=== PATIENT | male | born 1940 | race Caucasian/White ===

== ENCOUNTER → 2016-08-20 | Outpatient (CLI) | payer SELFPAY ==
[2016-08-20 09:58] LABS: MEAN CORPUSCULAR HEMOGLOBIN 31.3 pg (27.0-33.0); MEAN CORPUSCULAR HGB CONC 33.2 g/dl (32.0-36.5); MEAN CORPUSCULAR VOLUME 94.5 fl (80.0-96.0); RED CELL DISTRIBUTION WIDTH 13.3 % (11.5-14.5); WHITE BLOOD COUNT 9.6 K/mm3 (4.0-10.0)
[2016-08-20 10:11] LABS: ALBUMIN 3.6 GM/DL (3.2-5.2); ALBUMIN/GLOBULIN RATIO 1.06 (1.00-1.93); BILIRUBIN,TOTAL 0.5 MG/DL (0.2-1.0); CALCIUM LEVEL 8.8 MG/DL (8.8-10.2); CREATININE FOR GFR 1.57 MG/DL (0.70-1.30); GLOMERULAR FILTRATION RATE 46.3 (>42); POTASSIUM SERUM 4.9 MEQ/L (3.5-5.1)
== END ==
LOC: M WUC 08:19
PROVIDERS: ATTEND Family Medicine
DX: N18.2 Chronic kidney disease, stage 2 (mild) (principal); E78.2 Mixed hyperlipidemia; Z12.5 Encounter for screening for malignant neoplasm of prostate
CPT/HCPCS: 36415; 80053; 80061; 85027; G0103

== ENCOUNTER 2017-08-21 12:53 | Inpatient (IN) | payer MEDICARE, OTHER, SELFPAY ==
[2017-08-21] MEDS: METOPROLOL 5 MG/5 ML VIAL IV ×3 (13:39→13:49)
[2017-08-21 13:46] LABS: BASO % 0.3 % (0.0-1.0); EOS % 0.2 % (0.0-3.0); HEMATOCRIT 42.8 % (42.0-52.0); HEMOGLOBIN 14.5 g/dl (13.5-17.5); IMMATURE GRANULOCYTE % 0.3 % (0-3.0); LYMPH # 1.6 10^3/uL (1.5-4.5); LYMPH % 15.8 % (24.0-44.0); MEAN CORPUSCULAR HGB CONC 33.9 g/dl (32.0-36.5); MEAN CORPUSCULAR VOLUME 91.6 fl (80.0-96.0); MONO # 0.8 10^3/uL (0.0-0.8); MONO % 8.3 % (0.0-5.0); NEUTROPHILS # 7.5 10^3/uL (1.8-7.7); NEUTROPHILS % 75.1 % (36.0-66.0); PLATELET COUNT, AUTOMATED 220 10^3/uL (150-450); RED BLOOD COUNT 4.67 10^6/uL (4.30-6.10); RED CELL DISTRIBUTION WIDTH 14.9 % (11.5-14.5)
[2017-08-21 13:55] LABS: INR 1.41; PROTHROMBIN TIME 17.6 SECONDS (12.4-14.5)
[2017-08-21 13:56] LABS: PARTIAL THROMBOPLASTIN TIME 31.9 SECONDS (26.8-37.9)
[2017-08-21 14:16] LABS: ALBUMIN 3.6 GM/DL (3.2-5.2); ALKALINE PHOSPHATASE 65 U/L (45-117); ALT/SGPT 33 U/L (12-78); ANION GAP 10 MEQ/L (8-16); AST/SGOT 19 U/L (7-37); BILIRUBIN,DIRECT 0.3 MG/DL (0.0-0.2); BLOOD UREA NITROGEN 23 MG/DL (7-18); CARBON DIOXIDE LEVEL 23 MEQ/L (21-32); CHLORIDE LEVEL 110 MEQ/L (98-107); CPK CREATINE PHOSPHOKINASE 74 U/L (39-308); CREATININE FOR GFR 1.79 MG/DL (0.70-1.30); FREE T4 1.33 NG/DL (0.76-1.46); GLOMERULAR FILTRATION RATE 39.7 (>42); GLUCOSE, FASTING 95 MG/DL (70-100); LIPASE 391 U/L (73-393); POTASSIUM SERUM 3.5 MEQ/L (3.5-5.1); SODIUM LEVEL 143 MEQ/L (136-145); TOTAL PROTEIN 6.6 GM/DL (6.4-8.2); TROPONIN I 0.05 NG/ML (< 0.10)
[2017-08-21 14:21] LABS: CK-MB VALUE MASS 1.8 NG/ML (<3.6); MB/CK RELATIVE INDEX 2.43 (< OR =4); NT-PRO BNP 7914 PG/ML (<125)
[2017-08-21] MEDS: METOPROLOL TART 50 MG TAB PO (14:28)
[2017-08-21] MEDS ORDERED: METOPROLOL 5 MG/5 ML VIAL IV (15:15)
[2017-08-21] MEDS ORDERED: diltiaZEM 125 MG in NS 100 ML IV (17:30)
[2017-08-21] MEDS: FUROSEMIDE 100 MG/10 ML VIAL (J1940) IV (17:47)
[2017-08-21] MEDS ORDERED: FUROSEMIDE 40 MG/4 ML VIAL (J1940) IV (18:00)
[2017-08-21] MEDS ORDERED: PILL CRUSHER/CUTTER 1 EACH XX (18:00)
[2017-08-21] MEDS ORDERED: METOPROLOL TART 25 MG TABLET PO (18:00)
[2017-08-21 18:31] LABS: CK-MB VALUE MASS 1.9 NG/ML (<3.6); CPK CREATINE PHOSPHOKINASE 83 U/L (39-308); MB/CK RELATIVE INDEX 2.28 (< OR =4); TROPONIN I 0.06 NG/ML (< 0.10)
[2017-08-21] MEDS: APIXABAN 5 MG TAB (ELIQUIS) PO (21:15)
[2017-08-21] MEDS: SIMVASTATIN 40 MG TAB PO (21:15)
[2017-08-21] MEDS: METOPROLOL TART 25 MG TABLET PO (21:15)
[2017-08-22 00:45] LABS: KETONE, URINE AUTO RFX NEGATIVE (NEGATIVE); LEUKOCYTE ESTERASE UR AUTO RFX NEGATIVE (NEGATIVE); NITRITE, URINE AUTO RFX NEGATIVE (NEGATIVE); RBC, URINE AUTO RFX 3 /HPF (0-3); SPECIFIC GRAVITY UR AUTO RFX 1.004 (1.002-1.035); SQUAM EPITHELIAL CELL UR AURFX 0 /HPF (0-6); WBC, URINE AUTO RFX 0 /HPF (0-3)
[2017-08-22 01:08] LABS: CPK CREATINE PHOSPHOKINASE 100 U/L (39-308); TROPONIN I 0.05 NG/ML (< 0.10)
[2017-08-22] MEDS: METOPROLOL 5 MG/5 ML VIAL IV (01:51)
[2017-08-22] MEDS: METOPROLOL TART 25 MG TABLET PO (03:12)
[2017-08-22 05:20] LABS: HEMATOCRIT 41.6 % (42.0-52.0); HEMOGLOBIN 13.7 g/dl (13.5-17.5); MEAN CORPUSCULAR HEMOGLOBIN 30.5 pg (27.0-33.0); MEAN CORPUSCULAR HGB CONC 32.9 g/dl (32.0-36.5); MEAN CORPUSCULAR VOLUME 92.7 fl (80.0-96.0); PLATELET COUNT, AUTOMATED 195 10^3/uL (150-450); RED BLOOD COUNT 4.49 10^6/uL (4.30-6.10); RED CELL DISTRIBUTION WIDTH 14.7 % (11.5-14.5)
[2017-08-22 05:36] LABS: ESTIMATED AVERAGE GLUCOSE 123 MG/DL (60-110); HEMOGLOBIN A1c 5.9 %
[2017-08-22 05:43] LABS: ALBUMIN 3.2 GM/DL (3.2-5.2); ALBUMIN/GLOBULIN RATIO 1.07 (1.00-1.93); ALKALINE PHOSPHATASE 64 U/L (45-117); ALT/SGPT 30 U/L (12-78); ANION GAP 10 MEQ/L (8-16); AST/SGOT 15 U/L (7-37); BILIRUBIN,TOTAL 0.7 MG/DL (0.2-1.0); BLOOD UREA NITROGEN 23 MG/DL (7-18); CALCIUM LEVEL 8.7 MG/DL (8.8-10.2); CARBON DIOXIDE LEVEL 27 MEQ/L (21-32); CHLORIDE LEVEL 108 MEQ/L (98-107); CHOLESTEROL LEVEL 93 MG/DL (<200); CHOLESTEROL RISK RATIO 2.513 (<5); CPK CREATINE PHOSPHOKINASE 83 U/L (39-308); CREATININE FOR GFR 1.66 MG/DL (0.70-1.30); GLOMERULAR FILTRATION RATE 43.3 (>42); GLUCOSE, FASTING 86 MG/DL (70-100); HDL CHOLESTEROL 37 MG/DL (>40); MAGNESIUM LEVEL 1.9 MG/DL (1.8-2.4); NON-HDL-C 56 MG/DL; POTASSIUM SERUM 3.2 MEQ/L (3.5-5.1); SODIUM LEVEL 145 MEQ/L (136-145); TOTAL PROTEIN 6.2 GM/DL (6.4-8.2); TRIGLYCERIDES LEVEL 80 MG/DL (<150); TROPONIN I 0.05 NG/ML (< 0.10)
[2017-08-22 05:44] LABS: CK-MB VALUE MASS 1.9 NG/ML (<3.6); MB/CK RELATIVE INDEX 2.28 (< OR =4)
[2017-08-22] MEDS: METOPROLOL TARTRATE 100 MG TAB PO ×2 (06:25→20:14)
[2017-08-22] MEDS: POTASSIUM CHLORIDE 10 MEQ SR TABLET PO ×2 (06:25→14:20)
[2017-08-22] MEDS ORDERED: SLF 3 ML SYR IV (07:30)
[2017-08-22] MEDS: APIXABAN 5 MG TAB (ELIQUIS) PO ×2 (08:13→20:11)
[2017-08-22] MEDS: DIGOXIN INJ 0.5 MG/2 ML AMP (J1160) IV ×3 (10:25→18:18)
[2017-08-22] MEDS: FUROSEMIDE 40 MG/4 ML VIAL (J1940) IV ×2 (10:26→16:19)
[2017-08-22] MEDS: SLF 3 ML SYR IV ×2 (11:02→21:43)
[2017-08-22] MEDS: MAG SULF 1GM/100ML (MAG RUN) 1 GM in APPROPRIATE DILUENT 1 EA IV (14:20)
[2017-08-22] MEDS: SIMVASTATIN 40 MG TAB PO (20:11)
[2017-08-23] MEDS: SLF 3 ML SYR IV ×3 (06:00→20:18)
[2017-08-23 07:29] LABS: HEMATOCRIT 48.9 % (42.0-52.0); MEAN CORPUSCULAR HEMOGLOBIN 30.8 pg (27.0-33.0); MEAN CORPUSCULAR HGB CONC 32.9 g/dl (32.0-36.5); MEAN CORPUSCULAR VOLUME 93.5 fl (80.0-96.0); PLATELET COUNT, AUTOMATED 224 10^3/uL (150-450); RED BLOOD COUNT 5.23 10^6/uL (4.30-6.10); RED CELL DISTRIBUTION WIDTH 14.8 % (11.5-14.5)
[2017-08-23 07:35] LABS: HEMOGLOBIN 16.1 g/dl (13.5-17.5)
[2017-08-23 07:47] LABS: ANION GAP 8 MEQ/L (8-16); BLOOD UREA NITROGEN 22 MG/DL (7-18); CARBON DIOXIDE LEVEL 31 MEQ/L (21-32); CHLORIDE LEVEL 105 MEQ/L (98-107); CREATININE FOR GFR 1.74 MG/DL (0.70-1.30); GLUCOSE, FASTING 99 MG/DL (70-100); POTASSIUM SERUM 3.5 MEQ/L (3.5-5.1); SODIUM LEVEL 144 MEQ/L (136-145)
[2017-08-23] MEDS: METOPROLOL TARTRATE 100 MG TAB PO ×2 (08:04→20:14)
[2017-08-23] MEDS: FUROSEMIDE 40 MG/4 ML VIAL (J1940) IV ×2 (08:04→16:18)
[2017-08-23] MEDS: APIXABAN 5 MG TAB (ELIQUIS) PO ×2 (08:05→20:17)
[2017-08-23] MEDS: DIGOXIN 0.125 MG TAB PO (08:05)
[2017-08-23] MEDS: DIGOXIN INJ 0.5 MG/2 ML AMP (J1160) IV (18:47)
[2017-08-23] MEDS: SIMVASTATIN 40 MG TAB PO (20:14)
[2017-08-24] MEDS: SLF 3 ML SYR IV ×3 (05:23→22:00)
[2017-08-24 08:53] LABS: HEMOGLOBIN 16.8 g/dl (13.5-17.5); MEAN CORPUSCULAR HEMOGLOBIN 30.7 pg (27.0-33.0); MEAN CORPUSCULAR HGB CONC 32.9 g/dl (32.0-36.5); MEAN CORPUSCULAR VOLUME 93.1 fl (80.0-96.0); PLATELET COUNT, AUTOMATED 237 10^3/uL (150-450); RED BLOOD COUNT 5.48 10^6/uL (4.30-6.10); RED CELL DISTRIBUTION WIDTH 14.6 % (11.5-14.5); WHITE BLOOD COUNT 9.5 10^3/uL (4.0-10.0)
[2017-08-24 09:27] LABS: ANION GAP 5 MEQ/L (8-16); BLOOD UREA NITROGEN 21 MG/DL (7-18); CALCIUM LEVEL 9.4 MG/DL (8.8-10.2); CARBON DIOXIDE LEVEL 35 MEQ/L (21-32); CHLORIDE LEVEL 103 MEQ/L (98-107); CREATININE FOR GFR 1.68 MG/DL (0.70-1.30); GLOMERULAR FILTRATION RATE 42.7 (>42); GLUCOSE, FASTING 97 MG/DL (70-100); POTASSIUM SERUM 4.2 MEQ/L (3.5-5.1); SODIUM LEVEL 143 MEQ/L (136-145)
[2017-08-24] MEDS: METOPROLOL TARTRATE 100 MG TAB PO (09:42)
[2017-08-24] MEDS: APIXABAN 5 MG TAB (ELIQUIS) PO ×2 (09:42→20:07)
[2017-08-24] MEDS: DIGOXIN 0.125 MG TAB PO (09:42)
[2017-08-24] MEDS: FUROSEMIDE 40 MG/4 ML VIAL (J1940) IV ×2 (09:42→17:52)
[2017-08-24] MEDS: METOPROLOL TART 50 MG TAB PO ×2 (12:03→20:07)
[2017-08-24] MEDS: SIMVASTATIN 40 MG TAB PO (20:07)
[2017-08-25] MEDS: SLF 3 ML SYR IV ×3 (05:37→20:07)
[2017-08-25 05:48] LABS: HEMATOCRIT 48.9 % (42.0-52.0); HEMOGLOBIN 16.1 g/dl (13.5-17.5); MEAN CORPUSCULAR HEMOGLOBIN 30.7 pg (27.0-33.0); MEAN CORPUSCULAR HGB CONC 32.9 g/dl (32.0-36.5); MEAN CORPUSCULAR VOLUME 93.3 fl (80.0-96.0); PLATELET COUNT, AUTOMATED 229 10^3/uL (150-450); RED BLOOD COUNT 5.24 10^6/uL (4.30-6.10); RED CELL DISTRIBUTION WIDTH 14.6 % (11.5-14.5); WHITE BLOOD COUNT 9.7 10^3/uL (4.0-10.0)
[2017-08-25 06:12] LABS: ANION GAP 7 MEQ/L (8-16); BLOOD UREA NITROGEN 27 MG/DL (7-18); CALCIUM LEVEL 9.1 MG/DL (8.8-10.2); CARBON DIOXIDE LEVEL 34 MEQ/L (21-32); CHLORIDE LEVEL 100 MEQ/L (98-107); CREATININE FOR GFR 1.74 MG/DL (0.70-1.30); GLUCOSE, FASTING 142 MG/DL (70-100); POTASSIUM SERUM 3.6 MEQ/L (3.5-5.1); SODIUM LEVEL 141 MEQ/L (136-145)
[2017-08-25] MEDS: FUROSEMIDE 40 MG/4 ML VIAL (J1940) IV (10:14)
[2017-08-25] MEDS: METOPROLOL TART 50 MG TAB PO ×2 (10:14→20:06)
[2017-08-25] MEDS: DIGOXIN 0.125 MG TAB PO (10:15)
[2017-08-25] MEDS: APIXABAN 5 MG TAB (ELIQUIS) PO ×2 (10:15→20:05)
[2017-08-25] MEDS: ACETAMINOPHEN TAB 650MG DOSE (2X325MG) PO (19:02)
[2017-08-25] MEDS: SIMVASTATIN 40 MG TAB PO (20:05)
[2017-08-26] MEDS: ACETAMINOPHEN TAB 650MG DOSE (2X325MG) PO (00:35)
[2017-08-26 05:53] LABS: HEMOGLOBIN 16.6 g/dl (13.5-17.5); MEAN CORPUSCULAR HEMOGLOBIN 30.9 pg (27.0-33.0); MEAN CORPUSCULAR HGB CONC 33.9 g/dl (32.0-36.5); MEAN CORPUSCULAR VOLUME 91.1 fl (80.0-96.0); PLATELET COUNT, AUTOMATED 224 10^3/uL (150-450); RED BLOOD COUNT 5.38 10^6/uL (4.30-6.10); RED CELL DISTRIBUTION WIDTH 14.4 % (11.5-14.5); WHITE BLOOD COUNT 9.3 10^3/uL (4.0-10.0)
[2017-08-26] MEDS: SLF 3 ML SYR IV (06:00)
[2017-08-26 06:12] LABS: ANION GAP 9 MEQ/L (8-16); BLOOD UREA NITROGEN 27 MG/DL (7-18); CARBON DIOXIDE LEVEL 30 MEQ/L (21-32); CHLORIDE LEVEL 101 MEQ/L (98-107); CREATININE FOR GFR 1.46 MG/DL (0.70-1.30); GLOMERULAR FILTRATION RATE 50.2 (>42); GLUCOSE, FASTING 100 MG/DL (70-100); POTASSIUM SERUM 3.5 MEQ/L (3.5-5.1); SODIUM LEVEL 140 MEQ/L (136-145)
[2017-08-26] MEDS: METOPROLOL TART 50 MG TAB PO (09:57)
[2017-08-26] MEDS: FUROSEMIDE 20 MG TAB PO (09:58)
[2017-08-26] MEDS: DIGOXIN 0.125 MG TAB PO (09:58)
[2017-08-26] MEDS: APIXABAN 5 MG TAB (ELIQUIS) PO (09:58)
== END 2017-08-26 13:18 | disposition home or self-care (01) | DRG 308 ==
LOC: M ED 12:53 → M ED INP 15:12 → M PCU 17:30
DX: I48.0 Paroxysmal atrial fibrillation (principal); I50.21 Acute systolic (congestive) heart failure; I13.0 Hypertensive heart and chronic kidney disease with heart failure and stage 1 through stage 4 chronic kidney disease, or unspecified chronic kidney disease; N18.3 Chronic kidney disease, stage 3 (moderate); E78.5 Hyperlipidemia, unspecified; F02.80 Dementia in other diseases classified elsewhere, unspecified severity, without behavioral disturbance, psychotic disturbance, mood disturbance, and anxiety; G30.9 Alzheimer's disease, unspecified; Z79.01 Long term (current) use of anticoagulants; E55.9 Vitamin D deficiency, unspecified; Z79.899 Other long term (current) drug therapy; Z88.8 Allergy status to other drugs, medicaments and biological substances; M10.9 Gout, unspecified

== ENCOUNTER 2017-10-19 12:15 | Inpatient (IN) | payer MEDICARE, SELFPAY, OTHER ==
[2017-10-19 14:11] LABS: BASO % 0.2 % (0.0-1.0); EOS % 0.1 % (0.0-3.0); HEMATOCRIT 45.1 % (42.0-52.0); HEMOGLOBIN 14.5 g/dl (13.5-17.5); IMMATURE GRANULOCYTE % 0.6 % (0-3.0); LYMPH % 11.9 % (24.0-44.0); MEAN CORPUSCULAR HEMOGLOBIN 31.5 pg (27.0-33.0); MEAN CORPUSCULAR HGB CONC 32.2 g/dl (32.0-36.5); MEAN CORPUSCULAR VOLUME 97.8 fl (80.0-96.0); MONO # 0.4 10^3/uL (0.0-0.8); MONO % 4.8 % (0.0-5.0); NEUTROPHILS # 6.7 10^3/uL (1.8-7.7); NEUTROPHILS % 82.4 % (36.0-66.0); PLATELET COUNT, AUTOMATED 224 10^3/uL (150-450); RED BLOOD COUNT 4.61 10^6/uL (4.30-6.10); RED CELL DISTRIBUTION WIDTH 16.9 % (11.5-14.5); WHITE BLOOD COUNT 8.1 10^3/uL (4.0-10.0)
[2017-10-19 14:16] LABS: INR 1.14; PROTHROMBIN TIME 14.8 SECONDS (12.1-14.4)
[2017-10-19 14:17] LABS: PARTIAL THROMBOPLASTIN TIME 29.2 SECONDS (25.4-37.6)
[2017-10-19 14:25] LABS: ALBUMIN 3.3 GM/DL (3.2-5.2); ALBUMIN/GLOBULIN RATIO 0.94 (1.00-1.93); ALKALINE PHOSPHATASE 74 U/L (45-117); ALT/SGPT 38 U/L (12-78); ANION GAP 9 MEQ/L (8-16); AST/SGOT 23 U/L (7-37); BILIRUBIN,DIRECT 0.3 MG/DL (0.0-0.2); BILIRUBIN,TOTAL 0.9 MG/DL (0.2-1.0); BLOOD UREA NITROGEN 21 MG/DL (7-18); CALCIUM LEVEL 9.1 MG/DL (8.8-10.2); CARBON DIOXIDE LEVEL 27 MEQ/L (21-32); CHLORIDE LEVEL 108 MEQ/L (98-107); CPK CREATINE PHOSPHOKINASE 56 U/L (39-308); CREATININE FOR GFR 1.73 MG/DL (0.70-1.30); ETHYL ALCOHOL (ETHANOL) < 0.003 % (0.000-0.010); GLOMERULAR FILTRATION RATE 41.2 (>42); GLUCOSE, FASTING 100 MG/DL (70-100); SODIUM LEVEL 144 MEQ/L (136-145); TOTAL PROTEIN 6.8 GM/DL (6.4-8.2); TROPONIN I 0.19 NG/ML (< 0.10)
[2017-10-19] MEDS: NS 1,000 ML IV (14:30)
[2017-10-19] MEDS: ASPIRIN 81 MG CHEW TABLET PO (14:31)
[2017-10-19] MEDS: METOPROLOL 5 MG/5 ML VIAL IV ×3 (14:33→17:11)
[2017-10-19] MEDS: FUROSEMIDE 40 MG/4 ML VIAL (J1940) IV (14:34)
[2017-10-19 14:36] LABS: DIGOXIN LEVEL < 0.1 NG/ML (0.5-2.0); MB/CK RELATIVE INDEX 3.57 (< OR =4); NT-PRO BNP 8991 PG/ML (<450)
[2017-10-19 14:51] LABS: VENOUS BASE EXCESS -1.4 (-2.0-2.0); VENOUS O2 SATURATION 39.4 % (60.0-80.0); VENOUS PARTIAL PRESSURE CO2 54.3 mmHg (38.0-50.0); VENOUS PARTIAL PRESSURE O2 25.9 mmHg (30.0-50.0); VENOUS PH 7.298 UNITS (7.330-7.430); VENOUS STANDARD HCO3 21.8 MEQ/L; VENOUS TOTAL CO2 27.7 MEQ/L (24.0-28.0)
[2017-10-19] MEDS: DIGOXIN INJ 0.5 MG/2 ML AMP (J1160) IV (15:17)
[2017-10-19 16:02] LABS: KETONE, URINE AUTO RFX NEGATIVE (NEGATIVE); LEUKOCYTE ESTERASE UR AUTO RFX NEGATIVE (NEGATIVE); MUCUS, URINE RFX SMALL (NEGATIVE); NITRITE, URINE AUTO RFX NEGATIVE (NEGATIVE); RBC, URINE AUTO RFX 1 /HPF (0-3); SPECIFIC GRAVITY UR AUTO RFX 1.011 (1.002-1.035); SQUAM EPITHELIAL CELL UR AURFX 0 /HPF (0-6); WBC, URINE AUTO RFX 1 /HPF (0-3)
[2017-10-19 16:12] LABS: AMPHETAMINES LEVEL URINE NEGATIVE (NEGATIVE); BARBITURATES URINE NEGATIVE (NEGATIVE); BENZODIAZEPINES URINE NEGATIVE (NEGATIVE); CANNABINOIDS URINE NEGATIVE (NEGATIVE); COCAINE METABOLITE URINE NEGATIVE (NEGATIVE); METHADONE URINE NEGATIVE (NEGATIVE); OPIATES URINE NEGATIVE (NEGATIVE); PHENCYCLIDINE URINE NEGATIVE (NEGATIVE)
[2017-10-19 16:30] LABS: AMMONIA < 10 uMOL/L (<32)
[2017-10-19 16:32] LABS: CPK CREATINE PHOSPHOKINASE 58 U/L (39-308); T UPTAKE 32 % (33-40); THYROXINE (T4) 6.4 UG/DL (4.5-12.0); TROPONIN I 0.18 NG/ML (< 0.10)
[2017-10-19 16:38] LABS: CK-MB VALUE MASS 2.2 NG/ML (<3.6); MB/CK RELATIVE INDEX 3.79 (< OR =4)
[2017-10-19 17:00] LABS: OSMOLALITY URINE 385 MOSM/KG (500-800)
[2017-10-19 17:25] LABS: CHLORIDE,RANDOM URINE 121 MEQ/L; CREATININE,RANDOM URINE 79.9 MG/DL; SODIUM,RANDOM URINE 90 MEQ/L; TOTAL PROTEIN,RANDOM URINE 70.3 MG/DL (0.0-12.0)
[2017-10-19] MEDS ORDERED: ONDANSETRON 4MG/2ML VIAL (J2405) IV (17:30)
[2017-10-19] MEDS: METOPROLOL TARTRATE 100 MG TAB PO (18:06)
[2017-10-19] MEDS ORDERED: OXAZEPAM 10 MG CAP PO (18:15)
[2017-10-19] MEDS: hydrALAZINE INJ 20 MG/ML VIAL IV (19:55)
[2017-10-19] MEDS: THIAMINE 100 MG TAB PO (19:56)
[2017-10-19] MEDS: FOLIC ACID 1 MG TAB PO (19:56)
[2017-10-19] MEDS: SENOKOT S TAB PO (20:52)
[2017-10-19] MEDS: APIXABAN 5 MG TAB (ELIQUIS) PO (20:52)
[2017-10-19] MEDS: MULTIVITAMINS/MINERALS THERAP 1 TAB PO (20:52)
[2017-10-19] MEDS: SIMVASTATIN 40 MG TAB PO (20:52)
[2017-10-19] MEDS ORDERED: METOPROLOL TART 50 MG TAB PO (21:00)
[2017-10-19 22:31] LABS: CK-MB VALUE MASS 2.3 NG/ML (<3.6); CPK CREATINE PHOSPHOKINASE 70 U/L (39-308); MB/CK RELATIVE INDEX 3.28 (< OR =4); TROPONIN I 0.15 NG/ML (< 0.10)
[2017-10-20] MEDS: hydrALAZINE INJ 20 MG/ML VIAL IV ×3 (02:00→17:31)
[2017-10-20] MEDS: SENOKOT S TAB PO ×2 (07:57→20:32)
[2017-10-20] MEDS: FOLIC ACID 1 MG TAB PO (07:57)
[2017-10-20] MEDS: DONEPEZIL 5 MG TAB PO (07:57)
[2017-10-20] MEDS: MULTIVITAMINS/MINERALS THERAP 1 TAB PO (07:57)
[2017-10-20] MEDS: THIAMINE 100 MG TAB PO (07:57)
[2017-10-20] MEDS: APIXABAN 5 MG TAB (ELIQUIS) PO ×2 (07:57→20:32)
[2017-10-20] MEDS: FUROSEMIDE 40 MG/4 ML VIAL (J1940) IV ×2 (07:58→17:30)
[2017-10-20] MEDS: DIGOXIN 0.125 MG TAB PO (07:58)
[2017-10-20] MEDS: METOPROLOL TART 50 MG TAB PO ×2 (07:58→20:32)
[2017-10-20 11:00] LABS: HEMATOCRIT 44.5 % (42.0-52.0); HEMOGLOBIN 14.5 g/dl (13.5-17.5); MEAN CORPUSCULAR HEMOGLOBIN 31.6 pg (27.0-33.0); MEAN CORPUSCULAR HGB CONC 32.6 g/dl (32.0-36.5); MEAN CORPUSCULAR VOLUME 96.9 fl (80.0-96.0); PLATELET COUNT, AUTOMATED 241 10^3/uL (150-450); RED BLOOD COUNT 4.59 10^6/uL (4.30-6.10); RED CELL DISTRIBUTION WIDTH 16.7 % (11.5-14.5); WHITE BLOOD COUNT 7.8 10^3/uL (4.0-10.0)
[2017-10-20 11:27] LABS: ALBUMIN 3.1 GM/DL (3.2-5.2); ALBUMIN/GLOBULIN RATIO 1.11 (1.00-1.93); ALKALINE PHOSPHATASE 65 U/L (45-117); ALT/SGPT 34 U/L (12-78); ANION GAP 10 MEQ/L (8-16); AST/SGOT 22 U/L (7-37); BILIRUBIN,TOTAL 0.9 MG/DL (0.2-1.0); BLOOD UREA NITROGEN 19 MG/DL (7-18); CALCIUM LEVEL 8.6 MG/DL (8.8-10.2); CARBON DIOXIDE LEVEL 32 MEQ/L (21-32); CHLORIDE LEVEL 106 MEQ/L (98-107); CREATININE FOR GFR 1.58 MG/DL (0.70-1.30); GLOMERULAR FILTRATION RATE 45.7 (>42); GLUCOSE, FASTING 75 MG/DL (70-100); MAGNESIUM LEVEL 2.1 MG/DL (1.8-2.4); POTASSIUM SERUM 3.3 MEQ/L (3.5-5.1); PSA SCREENING 3.96 NG/ML (< 4.0); SODIUM LEVEL 148 MEQ/L (136-145); TOTAL PROTEIN 5.9 GM/DL (6.4-8.2)
[2017-10-20 11:39] LABS: VITAMIN B12 LEVEL 774 PG/ML (247-911)
[2017-10-20] MEDS: POTASSIUM CHLORIDE 10 MEQ SR TABLET PO ×2 (12:30→17:31)
[2017-10-20 18:19] LABS: ANION GAP 10 MEQ/L (8-16); BLOOD UREA NITROGEN 18 MG/DL (7-18); CALCIUM LEVEL 8.5 MG/DL (8.8-10.2); CARBON DIOXIDE LEVEL 31 MEQ/L (21-32); CHLORIDE LEVEL 104 MEQ/L (98-107); CREATININE FOR GFR 1.61 MG/DL (0.70-1.30); GLOMERULAR FILTRATION RATE 44.8 (>42); GLUCOSE, FASTING 81 MG/DL (70-100); POTASSIUM SERUM 3.7 MEQ/L (3.5-5.1); SODIUM LEVEL 145 MEQ/L (136-145)
[2017-10-20] MEDS: SIMVASTATIN 40 MG TAB PO (20:32)
[2017-10-21] MEDS: hydrALAZINE INJ 20 MG/ML VIAL IV ×3 (02:25→18:00)
[2017-10-21 05:46] LABS: HEMATOCRIT 44.2 % (42.0-52.0); HEMOGLOBIN 14.4 g/dl (13.5-17.5); MEAN CORPUSCULAR HEMOGLOBIN 31.3 pg (27.0-33.0); MEAN CORPUSCULAR HGB CONC 32.6 g/dl (32.0-36.5); MEAN CORPUSCULAR VOLUME 96.1 fl (80.0-96.0); PLATELET COUNT, AUTOMATED 242 10^3/uL (150-450); RED CELL DISTRIBUTION WIDTH 16.1 % (11.5-14.5); WHITE BLOOD COUNT 10.3 10^3/uL (4.0-10.0)
[2017-10-21 05:57] LABS: ANION GAP 8 MEQ/L (8-16); BLOOD UREA NITROGEN 18 MG/DL (7-18); CALCIUM LEVEL 8.8 MG/DL (8.8-10.2); CARBON DIOXIDE LEVEL 31 MEQ/L (21-32); CHLORIDE LEVEL 104 MEQ/L (98-107); CREATININE FOR GFR 1.47 MG/DL (0.70-1.30); GLOMERULAR FILTRATION RATE 49.7 (>42); GLUCOSE, FASTING 95 MG/DL (70-100); MAGNESIUM LEVEL 1.8 MG/DL (1.8-2.4); POTASSIUM SERUM 3.4 MEQ/L (3.5-5.1); SODIUM LEVEL 143 MEQ/L (136-145)
[2017-10-21] MEDS: FUROSEMIDE 40 MG/4 ML VIAL (J1940) IV ×2 (10:11→18:46)
[2017-10-21] MEDS: APIXABAN 5 MG TAB (ELIQUIS) PO ×2 (10:12→21:39)
[2017-10-21] MEDS: FOLIC ACID 1 MG TAB PO (10:12)
[2017-10-21] MEDS: MULTIVITAMINS/MINERALS THERAP 1 TAB PO (10:12)
[2017-10-21] MEDS: TAMSULOSIN 0.4 MG CAP PO (10:12)
[2017-10-21] MEDS: THIAMINE 100 MG TAB PO (10:12)
[2017-10-21] MEDS: DIGOXIN 0.125 MG TAB PO (10:13)
[2017-10-21] MEDS: DONEPEZIL 5 MG TAB PO (10:13)
[2017-10-21] MEDS: SENOKOT S TAB PO ×2 (10:13→21:39)
[2017-10-21] MEDS: METOPROLOL TART 50 MG TAB PO ×2 (10:14→21:41)
[2017-10-21] MEDS: SPIRONOLACTONE 25 MG TAB PO (10:22)
[2017-10-21] MEDS: POTASSIUM CHLORIDE 10 MEQ SR TABLET PO ×2 (10:22→21:39)
[2017-10-21] MEDS: DIGOXIN INJ 0.5 MG/2 ML AMP (J1160) IV (11:22)
[2017-10-21] MEDS ORDERED: SLF 3 ML SYR IV (12:15)
[2017-10-21] MEDS: SLF 3 ML SYR IV ×2 (14:00→21:39)
[2017-10-21] MEDS: QUEtiapine FUMARATE 50 MG TAB PO (16:27)
[2017-10-21] MEDS: SIMVASTATIN 40 MG TAB PO (21:39)
[2017-10-22] MEDS: hydrALAZINE INJ 20 MG/ML VIAL IV ×2 (02:00→09:31)
[2017-10-22] MEDS: SLF 3 ML SYR IV ×3 (05:51→20:13)
[2017-10-22 06:30] LABS: ANION GAP 13 MEQ/L (8-16); BLOOD UREA NITROGEN 14 MG/DL (7-18); CALCIUM LEVEL 8.3 MG/DL (8.8-10.2); CARBON DIOXIDE LEVEL 25 MEQ/L (21-32); CHLORIDE LEVEL 104 MEQ/L (98-107); CREATININE FOR GFR 1.28 MG/DL (0.70-1.30); DIGOXIN LEVEL 0.8 NG/ML (0.5-2.0); GLOMERULAR FILTRATION RATE 58.3 (>42); GLUCOSE, FASTING 80 MG/DL (70-100); MAGNESIUM LEVEL 1.6 MG/DL (1.8-2.4); POTASSIUM SERUM 3.9 MEQ/L (3.5-5.1); SODIUM LEVEL 142 MEQ/L (136-145)
[2017-10-22] MEDS: MAG SULF 1GM/100ML (MAG RUN) 1 GM in APPROPRIATE DILUENT 1 EA IV (09:28)
[2017-10-22] MEDS: FOLIC ACID 1 MG TAB PO (09:29)
[2017-10-22] MEDS: SENOKOT S TAB PO ×2 (09:29→20:13)
[2017-10-22] MEDS: MULTIVITAMINS/MINERALS THERAP 1 TAB PO (09:29)
[2017-10-22] MEDS: APIXABAN 5 MG TAB (ELIQUIS) PO ×2 (09:29→20:13)
[2017-10-22] MEDS: DIGOXIN 0.125 MG TAB PO (09:29)
[2017-10-22] MEDS: POTASSIUM CHLORIDE 10 MEQ SR TABLET PO ×2 (09:29→20:13)
[2017-10-22] MEDS: THIAMINE 100 MG TAB PO (09:29)
[2017-10-22] MEDS: TAMSULOSIN 0.4 MG CAP PO (09:30)
[2017-10-22] MEDS: METOPROLOL TART 50 MG TAB PO ×2 (09:30→20:12)
[2017-10-22] MEDS: SPIRONOLACTONE 25 MG TAB PO (09:31)
[2017-10-22] MEDS: FUROSEMIDE 40 MG/4 ML VIAL (J1940) IV (09:31)
[2017-10-22 09:39] LABS: HEMOGLOBIN 15.2 g/dl (13.5-17.5); MEAN CORPUSCULAR HEMOGLOBIN 31.7 pg (27.0-33.0); PLATELET COUNT, AUTOMATED 242 10^3/uL (150-450); RED BLOOD COUNT 4.79 10^6/uL (4.30-6.10); RED CELL DISTRIBUTION WIDTH 16.2 % (11.5-14.5); WHITE BLOOD COUNT 8.6 10^3/uL (4.0-10.0)
[2017-10-22] MEDS: ASPIRIN 81 MG ENTERIC TAB PO (10:13)
[2017-10-22] MEDS: QUEtiapine FUMARATE 50 MG TAB PO (16:13)
[2017-10-22] MEDS: SIMVASTATIN 40 MG TAB PO (20:13)
[2017-10-23] MEDS: SLF 3 ML SYR IV ×3 (05:48→21:01)
[2017-10-23 06:21] LABS: HEMATOCRIT 48.2 % (42.0-52.0); HEMOGLOBIN 15.8 g/dl (13.5-17.5); MEAN CORPUSCULAR HEMOGLOBIN 31.8 pg (27.0-33.0); MEAN CORPUSCULAR HGB CONC 32.8 g/dl (32.0-36.5); PLATELET COUNT, AUTOMATED 250 10^3/uL (150-450); RED BLOOD COUNT 4.97 10^6/uL (4.30-6.10); RED CELL DISTRIBUTION WIDTH 16.3 % (11.5-14.5); WHITE BLOOD COUNT 9.4 10^3/uL (4.0-10.0)
[2017-10-23 06:36] LABS: ANION GAP 5 MEQ/L (8-16); BLOOD UREA NITROGEN 15 MG/DL (7-18); CALCIUM LEVEL 8.7 MG/DL (8.8-10.2); CARBON DIOXIDE LEVEL 35 MEQ/L (21-32); CHLORIDE LEVEL 102 MEQ/L (98-107); CREATININE FOR GFR 1.46 MG/DL (0.70-1.30); GLOMERULAR FILTRATION RATE 50.1 (>42); GLUCOSE, FASTING 89 MG/DL (70-100); MAGNESIUM LEVEL 2.1 MG/DL (1.8-2.4); POTASSIUM SERUM 4.4 MEQ/L (3.5-5.1); SODIUM LEVEL 142 MEQ/L (136-145)
[2017-10-23] MEDS: TAMSULOSIN 0.4 MG CAP PO (08:54)
[2017-10-23] MEDS: SPIRONOLACTONE 25 MG TAB PO (08:54)
[2017-10-23] MEDS: POTASSIUM CHLORIDE 10 MEQ SR TABLET PO (08:54)
[2017-10-23] MEDS: ASPIRIN 81 MG ENTERIC TAB PO (08:55)
[2017-10-23] MEDS: DIGOXIN 0.125 MG TAB PO ×2 (08:56→10:58)
[2017-10-23] MEDS: SENOKOT S TAB PO ×2 (08:56→21:00)
[2017-10-23] MEDS: MULTIVITAMINS/MINERALS THERAP 1 TAB PO (08:56)
[2017-10-23] MEDS: METOPROLOL TART 50 MG TAB PO (08:56)
[2017-10-23] MEDS: THIAMINE 100 MG TAB PO (08:56)
[2017-10-23] MEDS: FOLIC ACID 1 MG TAB PO (08:56)
[2017-10-23] MEDS: APIXABAN 5 MG TAB (ELIQUIS) PO ×2 (08:56→21:00)
[2017-10-23] MEDS: FUROSEMIDE 40 MG TAB PO (09:03)
[2017-10-23] MEDS: LOSARTAN 25 MG TAB PO (09:57)
[2017-10-23] MEDS ORDERED: DIGOXIN INJ 0.5 MG/2 ML AMP (J1160) IV (10:30)
[2017-10-23] MEDS: QUEtiapine FUMARATE 50 MG TAB PO (16:01)
[2017-10-23] MEDS: SIMVASTATIN 40 MG TAB PO (21:00)
[2017-10-23] MEDS: METOPROLOL TARTRATE 100 MG TAB PO (21:01)
[2017-10-24] MEDS: SLF 3 ML SYR IV ×3 (05:28→20:33)
[2017-10-24 06:11] LABS: HEMATOCRIT 46.3 % (42.0-52.0); HEMOGLOBIN 15.4 g/dl (13.5-17.5); MEAN CORPUSCULAR HEMOGLOBIN 31.6 pg (27.0-33.0); MEAN CORPUSCULAR HGB CONC 33.3 g/dl (32.0-36.5); MEAN CORPUSCULAR VOLUME 95.1 fl (80.0-96.0); PLATELET COUNT, AUTOMATED 225 10^3/uL (150-450); RED BLOOD COUNT 4.87 10^6/uL (4.30-6.10); RED CELL DISTRIBUTION WIDTH 15.8 % (11.5-14.5); WHITE BLOOD COUNT 8.1 10^3/uL (4.0-10.0)
[2017-10-24 06:42] LABS: ANION GAP 7 MEQ/L (8-16); BLOOD UREA NITROGEN 16 MG/DL (7-18); CALCIUM LEVEL 8.7 MG/DL (8.8-10.2); CARBON DIOXIDE LEVEL 28 MEQ/L (21-32); CHLORIDE LEVEL 106 MEQ/L (98-107); CREATININE FOR GFR 1.08 MG/DL (0.70-1.30); DIGOXIN LEVEL 0.9 NG/ML (0.5-2.0); GLOMERULAR FILTRATION RATE > 60.0 (>42); GLUCOSE, FASTING 89 MG/DL (70-100); MAGNESIUM LEVEL 2.3 MG/DL (1.8-2.4); POTASSIUM SERUM 3.8 MEQ/L (3.5-5.1); SODIUM LEVEL 141 MEQ/L (136-145)
[2017-10-24] MEDS: APIXABAN 5 MG TAB (ELIQUIS) PO ×2 (09:00→20:33)
[2017-10-24] MEDS: TAMSULOSIN 0.4 MG CAP PO (09:00)
[2017-10-24] MEDS: FOLIC ACID 1 MG TAB PO (09:01)
[2017-10-24] MEDS: LOSARTAN 25 MG TAB PO (09:01)
[2017-10-24] MEDS: ASPIRIN 81 MG ENTERIC TAB PO (09:01)
[2017-10-24] MEDS: THIAMINE 100 MG TAB PO (09:02)
[2017-10-24] MEDS: MULTIVITAMINS/MINERALS THERAP 1 TAB PO (09:02)
[2017-10-24] MEDS: SPIRONOLACTONE 25 MG TAB PO (09:02)
[2017-10-24] MEDS: DIGOXIN 0.25 MG TAB PO (09:02)
[2017-10-24] MEDS: SENOKOT S TAB PO ×2 (09:02→20:33)
[2017-10-24] MEDS: METOPROLOL TARTRATE 100 MG TAB PO ×2 (09:02→20:33)
[2017-10-24] MEDS: FUROSEMIDE 40 MG TAB PO (09:02)
[2017-10-24] MEDS: QUEtiapine FUMARATE 50 MG TAB PO (16:01)
[2017-10-24] MEDS: SIMVASTATIN 40 MG TAB PO (20:33)
[2017-10-25] MEDS: SLF 3 ML SYR IV (05:10)
[2017-10-25 05:58] LABS: HEMATOCRIT 48.9 % (42.0-52.0); HEMOGLOBIN 15.9 g/dl (13.5-17.5); MEAN CORPUSCULAR HEMOGLOBIN 31.2 pg (27.0-33.0); MEAN CORPUSCULAR HGB CONC 32.5 g/dl (32.0-36.5); MEAN CORPUSCULAR VOLUME 96.1 fl (80.0-96.0); PLATELET COUNT, AUTOMATED 254 10^3/uL (150-450); RED BLOOD COUNT 5.09 10^6/uL (4.30-6.10); RED CELL DISTRIBUTION WIDTH 15.8 % (11.5-14.5); WHITE BLOOD COUNT 9.3 10^3/uL (4.0-10.0)
[2017-10-25 06:14] LABS: ANION GAP 6 MEQ/L (8-16); BLOOD UREA NITROGEN 20 MG/DL (7-18); CALCIUM LEVEL 8.7 MG/DL (8.8-10.2); CARBON DIOXIDE LEVEL 32 MEQ/L (21-32); CHLORIDE LEVEL 104 MEQ/L (98-107); CREATININE FOR GFR 1.29 MG/DL (0.70-1.30); GLOMERULAR FILTRATION RATE 57.8 (>42); GLUCOSE, FASTING 99 MG/DL (70-100); MAGNESIUM LEVEL 2.3 MG/DL (1.8-2.4); SODIUM LEVEL 142 MEQ/L (136-145)
[2017-10-25] MEDS: APIXABAN 5 MG TAB (ELIQUIS) PO (08:37)
[2017-10-25] MEDS: MULTIVITAMINS/MINERALS THERAP 1 TAB PO (08:37)
[2017-10-25] MEDS: FUROSEMIDE 40 MG TAB PO (08:37)
[2017-10-25] MEDS: SPIRONOLACTONE 25 MG TAB PO (08:37)
[2017-10-25] MEDS: THIAMINE 100 MG TAB PO (08:37)
[2017-10-25] MEDS: FOLIC ACID 1 MG TAB PO (08:37)
[2017-10-25] MEDS: SENOKOT S TAB PO (08:37)
[2017-10-25] MEDS: ASPIRIN 81 MG ENTERIC TAB PO (08:38)
[2017-10-25] MEDS: DIGOXIN 0.25 MG TAB PO (08:38)
[2017-10-25] MEDS: LOSARTAN 25 MG TAB PO (08:38)
[2017-10-25] MEDS: TAMSULOSIN 0.4 MG CAP PO (08:38)
[2017-10-25] MEDS: METOPROLOL TARTRATE 100 MG TAB PO (08:39)
== END 2017-10-25 12:51 | disposition home or self-care (01) | DRG 64 ==
LOC: M MSPAV 10-22 17:45 → M ED 12:15 → M ED INP 17:28 → M PCU 20:20
DX: I63.40 Cerebral infarction due to embolism of unspecified cerebral artery (principal); I50.33 Acute on chronic diastolic (congestive) heart failure; I13.0 Hypertensive heart and chronic kidney disease with heart failure and stage 1 through stage 4 chronic kidney disease, or unspecified chronic kidney disease; F02.81 Dementia in other diseases classified elsewhere, unspecified severity, with behavioral disturbance; F01.51 Vascular dementia, unspecified severity, with behavioral disturbance; N18.3 Chronic kidney disease, stage 3 (moderate); I48.91 Unspecified atrial fibrillation; E78.5 Hyperlipidemia, unspecified; G30.9 Alzheimer's disease, unspecified; N40.0 Benign prostatic hyperplasia without lower urinary tract symptoms; R97.20 Elevated prostate specific antigen [PSA]; E79.0 Hyperuricemia without signs of inflammatory arthritis and tophaceous disease; Z88.8 Allergy status to other drugs, medicaments and biological substances; Z98.52 Vasectomy status; Z87.891 Personal history of nicotine dependence; Z79.01 Long term (current) use of anticoagulants; Z79.899 Other long term (current) drug therapy; Z91.14 Patient's other noncompliance with medication regimen